=== PATIENT | male | born 1970 | race Caucasian/White ===

== ENCOUNTER 2016-12-01 12:24 | Emergency (ER) | payer OTHER ==
[~2016-12-01] VITALS: Wt 74.0 kg
[2016-12-01] MEDS ORDERED: SOD CHLORIDE 0.9% 1,000 ML IV STA (12:51)
[2016-12-01 12:53] VITALS: TEMP 98.1
[2016-12-01 13:18] LABS: ADD SCAN DIFF NO
[2016-12-01 13:19] LABS: BASOPHILS % 0.6 % (0.0-2.0); EOSINOPHILS # 0.1 10^3/ul (0.0-0.5); EOSINOPHILS % 1.9 % (0.0-7.0); HEMATOCRIT 39.2 % (42.0-52.0); HEMOGLOBIN 13.5 g/dl (14.0-18.0); LYMPHOCYTES # 1.9 10^3/ul (0.8-2.9); LYMPHOCYTES % 27.1 % (15.0-51.0); MEAN CORPUSCULAR HEMOGLOBIN 29.9 pg (29.0-33.0); MEAN CORPUSCULAR HGB CONC 34.4 g/dl (32.0-37.0); MEAN CORPUSCULAR VOLUME 86.7 fl (82.0-101.0); MEAN PLATELET VOLUME 10.5 fl (7.4-10.4); MONOCYTE # 0.6 10^3/ul (0.3-0.9); MONOCYTES % 8.6 % (0.0-11.0); NEUTROPHIL # 4.2 10^3/ul (1.6-7.5); NEUTROPHILS % 61.5 % (39.0-77.0); PLATELET COUNT 273 10^3/UL (140-415); RED BLOOD COUNT 4.52 10^6/ul (4.70-6.10); RED CELL DISTRIBUTION WIDTH 11.8 % (11.5-14.5); WHITE BLOOD COUNT 6.9 10^3/ul (4.8-10.8)
[2016-12-01 13:29] LABS: POTASSIUM 4.3 mmol/L (3.5-5.1)
[2016-12-01 13:31] LABS: ALBUMIN/GLOBULIN RATIO 1.42; BILIRUBIN,INDIRECT 0.4 mg/dl (0-1.1); BILIRUBIN,TOTAL 0.4 mg/dl (0.2-1.3); CREATININE 0.77 mg/dl (0.61-1.24); TOTAL PROTEIN 6.8 g/dl (6.1-8.1)
[2016-12-01 13:32] LABS: CALCIUM 9.1 mg/dl (8.4-10.2)
[2016-12-01] MEDS ORDERED: INSULIN LISPRO 100 UNIT/ML VIAL SC STA (13:43)
[2016-12-01 13:44] LABS: ADD UMIC NO; URINE BILIRUBIN (Dip) NEGATIVE (NEGATIVE); URINE BLOOD (Dip) NEGATIVE (NEGATIVE); URINE COLOR LT. YELLOW (YELLOW); URINE GLUCOSE (Dip) >=1000 % (NEGATIVE); URINE KETONES (Dip) NEGATIVE (NEGATIVE); URINE LEUKOCYTE ESTERASE (Dip) NEGATIVE (NEGATIVE); URINE NITRITE (Dip) NEGATIVE (NEGATIVE); URINE TOTAL PROTEIN (Dip) NEGATIVE (NEGATIVE); URINE UROBILINOGEN (Dip) 0.2 E.U./dL (0.1-1.0)
--- NOTE | 2016-12-01 13:48 | ERD ---
ER Documentation Chief Complaint Date/Time DATE: 12/01/16 TIME: 1248 Chief Complaint nausea and mild sob for the past few days, blurry vision. blood [id number] HPI 46-year-old male presents the emergency department with a number of nonspecific complaints that he relates to have his blood sugar being high. Patient states for approximately 1 month now he has been noncompliant with his blood sugar regimen and has not taken either his metformin or his insulin. Patient checked his blood sugars recently and was noted to be "high" and he came to the emergency department for evaluation. Patient reports no significant symptoms other than polyuria polydipsia. The triage note indicates he has nausea and mild shortness of breath but he denies this. He also denies the blurry vision that is on the triage note. He reports no headache focal weakness or numbness. ROS All systems reviewed and are negative except as per history of present illness. PMhx/Soc History of Surgery: No Anesthesia Reaction: No Hx Neurological Disorder: No Hx Respiratory Disorders: No Hx Cardiac Disorders: No Hx Psychiatric Problems: No Hx Miscellaneous Medical Probl: No Hx Alcohol Use: No Hx Substance Use: No Hx Tobacco Use: No Smoking Status: Never smoker FmHx Noncontributory for chief complaint Physical Exam Vitals Vital Signs Date Time Temp Pulse Resp B/P Pulse Ox O2 Delivery O2 Flow Rate FiO2 12/01/16 12:53 98.1 78 12 156/101 100 Room Air 12/01/16 12:31 98.8 79 20 123/71 96 Physical Exam GENERAL: The patient is well developed and appropriate for usual state of health in no apparent distress HEENT: Pupils equal, round, and reactive to light. EOMI. There is no scleral icterus. NECK: C-spine is soft and supple, there is no meningismus. There is no cervical lymphadenopathy. LUNGS: Clear to auscultation bilaterally. There are no rales, wheezes or rhonchi. HEART: Regular rate and rhythm, no murmurs, clicks, rubs or gallops. ABDOMEN: Soft, non-tender, non-distended. There are bowel sounds in all four quadrants. No rebound or guarding. EXTREMITIES: There is no peripheral cyanosis or edema. No focal swelling or erythema. NEURO: The patient moves all four extremities with 5/5 strength. Cranial nerves II - XII are intact. Normal gait. Alert and oriented SKIN: There is no apparent rash or petechiae. HEME/LYMPHATIC: There is no evidence of excessive bruising or lymphedema. PSYCHIATRIC: The patient does not appear anxious or depressed. Result Diagram: 12/01/16 1308 12/01/16 1308 Results 24 hrs Laboratory Tests Test 12/01/16 12:30 12/01/16 13:08 Bedside Glucose 552mg/dL Alanine Aminotransferase (ALT/SGPT) 32IU/L Albumin 4.0g/dl Albumin/Globulin Ratio 1.42 Alkaline Phosphatase 87IU/L Anion Gap 17 Aspartate Amino Transf (AST/SGOT) 18IU/L Basophils # 0.010^3/ul Basophils % 0.6% Blood Urea Nitrogen 15mg/dl Calcium Level 9.1mg/dl Carbon Dioxide Level 26mmol/L Chloride Level 96mmol/L Creatinine 0.77mg/dl Direct Bilirubin 0.00mg/dl Eosinophils # 0.110^3/ul Eosinophils % 1.9% Globulin 2.80g/dl Glucose Level 601mg/dl Hematocrit 39.2% Hemoglobin 13.5g/dl Indirect Bilirubin 0.4mg/dl Lipase 230U/L Lymphocytes # 1.910^3/ul Lymphocytes % 27.1% Mean Corpuscular Hemoglobin 29.9pg Mean Corpuscular Hemoglobin Concent 34.4g/dl Mean Corpuscular Volume 86.7fl Mean Platelet Volume 10.5fl Monocytes # 0.610^3/ul Monocytes % 8.6% Neutrophils # 4.210^3/ul Neutrophils % 61.5% Nucleated Red Blood Cells # 0.010^3/ul Nucleated Red Blood Cells % 0.0/100WBC Platelet Count 09554^3/UL Potassium Level 4.3mmol/L Red Blood Count 4.5210^6/ul Red Cell Distribution Width 11.8% Sodium Level 135mmol/L Total Bilirubin 0.4mg/dl Total Protein 6.8g/dl White Blood Count 6.910^3/ul Current Medications Medications (Trade) Dose Ordered Sig/Leonila Route PRN Reason Start Time Stop Time Status Last Admin Dose Admin Sodium Chloride (NS) 1,000 ml @ 1,000 mls/hr Q1H STAT IV 12/01/16 12:51 12/01/16 13:50 12/01/16 13:18 Insulin Human Lispro (Humalog) 8 unit ONCE STAT SC 12/01/16 13:43 12/01/16 13:45 DC Procedures/MDM Patient was taken to a room, seen and evaluated. Comfort measures were initiated. Diagnostic tests were ordered and reviewed. 3 LEAD RHYTHM STRIP: Normal sinus rhythm without ectopy REEVALUATION: Patient has remained asymptomatic and stable in the emergency department after hydration. MEDICAL DECISION MAKING: This is a 46-year-old male who presents with hyperglycemia but no evidence of diabetic ketoacidosis. He is clinically well with no evidence of significant acute endorgan dysfunction. I have provided insulin as he has been noncompliant with his therapeutic regimen. At this point , he states understanding of the need to be compliant he is now appropriate for outpatient care. Departure Diagnosis: Primary Impression: Hyperglycemia Condition: Stable Patient Instructions: Hyperglycemia (High Blood Sugar) Additional Instructions: Please check your blood sugar every day and use your insulin as prescribed. Return for any pain, fever, or any other concerns. DANIEL ISABEL Dec 01, 2016 13:48
[2016-12-01] MEDS ORDERED: LANT3I SC (13:57)
[2016-12-01] MEDS ORDERED: INSU200I SQ (14:02)
[2016-12-01] MEDS ORDERED: METF850T PO (14:03)
[2016-12-01 14:13] VITALS: BP 106/73; PULSE 69; RESP 17
[2016-12-01] MEDS ORDERED: glucometer (14:16)
== END 2016-12-01 15:00 | disposition home or self-care (01) ==
LOC: E/R 12:24
DX: R73.9 Hyperglycemia, unspecified (principal); Z79.4 Long term (current) use of insulin; Z79.84 Long term (current) use of oral hypoglycemic drugs
CPT/HCPCS: 36415; 80053; 81003; 82962; 83690; 85025; 96372; J1815; J7030; Z7502; Z7610